=== PATIENT | female | born 1985 | race Caucasian/White ===

== ENCOUNTER 2018-04-20 21:17 | Emergency (ER) | payer OTHER ==
[~2018-04-20] VITALS: Ht 157.5 cm; Wt 72.8 kg
[2018-04-21] MEDS ORDERED: FLEXERIL10 MG PO (00:11)
[2018-04-21] MEDS ORDERED: LIDOCAINE700 MG TP (00:11)
[2018-04-21 00:38] VITALS: BP 128/77
== END 2018-04-21 00:39 | disposition home or self-care (01) ==
LOC: EME 21:17
DX: R51 Headache (principal); M54.9 Dorsalgia, unspecified; V43.52XA Car driver injured in collision with other type car in traffic accident, initial encounter; Y92.410 Unspecified street and highway as the place of occurrence of the external cause
CPT/HCPCS: 70450; 72100; 99281; 99284